=== PATIENT | male | born 1970 | race Caucasian/White ===

== ENCOUNTER → 2023-10-10 | Outpatient (CLI) | payer BC ==
--- NOTE | 2023-10-10 11:59 | XR ---
EXAMINATION TYPE: XR shoulder complete BILAT DATE OF EXAM: 10/10/2023 CLINICAL HISTORY: pain TECHNIQUE: Three views of the bilateral shoulders are obtained. COMPARISON: None FINDINGS: There is no acute fracture/dislocation evident. The acromioclavicular and glenohumeral prashant int spaces appear within normal limits. The visualized ribs are intact and unremarkable. IMPRESSION: 1. There is no acute fracture or dislocation. ICD 10 NO FRACTURE, INITIAL EVALUATION
== END | disposition home or self-care (01) ==
LOC: RADXRMAIN 11:14
PROVIDERS: ATTEND Family Medicine
DX: M13.811 Other specified arthritis, right shoulder (principal); M13.812 Other specified arthritis, left shoulder